=== PATIENT | female | born 1965 | race Caucasian/White ===

== ENCOUNTER → 2019-02-13 | Outpatient (CLI) | payer OTHER ==
[~2019-02-13] MED LIST: BUME0.5T3 PO; CALC1TAB38 PO; CHOL40002 PO; DULO60CA6 PO; FAMO40TA6 PO; LRT10T PO; MAGN400C PO; MULT-963 PO; NADO20TA PO; RABE20TA PO
--- NOTE | 2019-02-13 13:14 | Diagnostic Imaging Report ---
INDICATION: Fever and cough. EXAMINATION: PA and lateral chest obtained at 12:40 p.m. and compared to 08/18/2012. FINDINGS: Heart is normal in size. There appears to be increased fullness to the right hilum when compared to the prior study, adenopathy is not excluded. There is new infiltrate in the right lung base which may represent pneumonia. There is some linear atelectatic change in the right perihilar region. IMPRESSION: New infiltrate in right lung base is present which may represent pneumonia. There is some right perihilar scarring or atelectasis. There appears to be new fullness to the right hilum when compared to the prior study, adenopathy not excluded. Consider short-term follow-up chest x-ray and/or chest CT as clinically warranted. Dictated by: Dictated on workstation # [id number]
== END ==
LOC: RAD 12:20
PROVIDERS: ATTEND Internal Medicine
DX: J18.9 Pneumonia, unspecified organism (principal); R91.8 Other nonspecific abnormal finding of lung field
CPT/HCPCS: 71046

== ENCOUNTER → 2019-02-28 | Outpatient (CLI) | payer OTHER ==
--- NOTE | 2019-02-28 09:40 | Diagnostic Imaging Report ---
EXAMINATION: CT Chest without contrast. TECHNIQUE: Multiple contiguous axial images were obtained through the chest without the use of intravenous contrast. All CT scans use one or more of the following dose optimizing techniques: automated exposure control, MA and/or KvP adjustment based on a patient size and exam type, or iterative reconstruction. INDICATION: PNEUMONIA COMPARISON: 08/06/2012 FINDINGS: There has been progression of bronchiectasis which now involves right lower lobe, right middle lobe and right upper lobe. There is also involvement of the left lower lobe. There has been an increase tree-in-bud nodules in both lower lobes. Areas of mucous plugging are seen in the bronchi. There is some atelectasis or scarring in the right lower lobe. No edema. No pleural effusion or pneumothorax. Heart size is normal. No pericardial effusion. Aorta is normal in caliber. There is no axillary or supraclavicular lymphadenopathy. There is no mediastinal lymphadenopathy. Limited views of the upper abdomen are unremarkable. There are no suspicious osseus lesions. IMPRESSION: 1. Increasing bronchiectasis involving the right upper, mid and lower lobes and left lower lobe with increase in tree-in-bud nodules in both lower lobes. 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 Less likely alternatives include chronic aspiration and recurrent hemoptysis with aspiration of blood. Dictated by: Dictated on workstation # [id number]
== END ==
LOC: RAD 08:33
PROVIDERS: ATTEND Internal Medicine
DX: J47.9 Bronchiectasis, uncomplicated (principal); J18.9 Pneumonia, unspecified organism
CPT/HCPCS: 71250

== ENCOUNTER → 2021-11-23 | Outpatient (CLI) | payer OTHER ==
--- NOTE | 2021-11-23 09:48 | Diagnostic Imaging Report ---
PROCEDURE: US Abdomen, limited. TECHNIQUE: Multiple realtime grayscale images were obtained over the abdomen in various projections. INDICATION: Right upper quadrant pain. FINDINGS: The liver is normal in size at 16 cm. The portal vein is patent and shows normal direction of flow. The gallbladder is without stones or sludge. No wall thickening or biliary ductal dilatation is seen. The pancreas is unremarkable. The aorta is nonaneurysmal. The IVC is patent. The right kidney is without calculi or hydronephrosis. There is no ascites. IMPRESSION: No evidence of cholelithiasis or acute cholecystitis. Dictated by: Dictated on workstation # [id number]
== END ==
LOC: RAD 08:00
PROVIDERS: ATTEND Urology
DX: R10.11 Right upper quadrant pain (principal)
CPT/HCPCS: 76705

== ENCOUNTER → 2022-02-23 | Outpatient (CLI) | payer OTHER ==
--- NOTE | 2022-02-24 11:52 | Diagnostic Imaging Report ---
INDICATION: Routine screening. COMPARISON: 12/01/2016. TECHNIQUE: 2D and 3D bilateral screening mammography was performed with CAD. FINDINGS: Both breasts are heterogeneously dense, limiting the sensitivity of mammography. A biopsy marker clip in the left breast is again noted. There are scattered benign calcifications bilaterally. No mass or malignant-appearing microcalcifications are seen. The axillae are unremarkable. IMPRESSION: No mammographic features suspicious for malignancy are identified. ACR BI-RADS Category 2: Benign findings. Result letter will be mailed to the patient. Note: At least 10% of breast cancer is not imaged by mammography. Dictated by: Dictated on workstation # [id number]
== END ==
LOC: RAD 08:19
PROVIDERS: ATTEND Obstetrics & Gynecology
DX: Z12.31 Encounter for screening mammogram for malignant neoplasm of breast (principal)
CPT/HCPCS: 77063; 77067

== ENCOUNTER → 2022-07-01 | Outpatient (CLI) | payer OTHER | LOC: CARD 10:00 | PROVIDERS: ATTEND Internal Medicine | DX: R00.2 Palpitations (principal) | CPT/HCPCS: 93246 ==

== ENCOUNTER → 2022-08-18 | Outpatient (CLI) | payer OTHER | LOC: CARD 08:01 | PROVIDERS: ATTEND Internal Medicine | DX: I51.7 Cardiomegaly (principal); I47.1 Supraventricular tachycardia | CPT/HCPCS: 93306 ==

== ENCOUNTER → 2022-12-13 | Outpatient (CLI) | payer OTHER, SELFPAY ==
--- NOTE | 2022-12-13 14:04 | Diagnostic Imaging Report ---
INDICATION: Palpitations. TECHNIQUE: CT coronary calcium scoring study performed with noncontrast images of the heart followed by calculation of cardiac calcium score. Dose reduction protocol was used. FINDINGS: There is no significant coronary calcification visualized. The coronary calcium score was 0. There is no pleural or pericardial fluid. The visualized portions of the lung [place] demonstrate scattered areas of parenchymal scarring and there is consolidative change in the right lower lobe with bronchiectatic change. IMPRESSION: The coronary calcium score was 0. There are bronchiectatic changes in the right lower lobe and right middle lobe with areas of consolidation and/or atelectasis. The entirety of the lung [place] was not included on this study, consider full chest CT if clinically warranted. Dictated by: Dictated on workstation # [id number]
== END ==
LOC: RAD 10:59
PROVIDERS: ATTEND Internal Medicine
DX: Z13.6 Encounter for screening for cardiovascular disorders (principal); R00.2 Palpitations; J47.9 Bronchiectasis, uncomplicated; J18.1 Lobar pneumonia, unspecified organism
CPT/HCPCS: 75571